=== PATIENT | male | born 1950 | race Caucasian/White ===

== ENCOUNTER 2017-07-09 12:00 | Observation (INO) | payer OTHER, MEDICARE ==
[~2017-07-09] VITALS: Ht 175.3 cm; Wt 92.1 kg
--- NOTE | 2017-07-09 12:38 | ED NEURO DEFICIT/STROKE ---
History of Present Illness General Chief Complaint: General Adult Stated Complaint: L SIDED FACIAL DROOP Source: patient, family Exam Limitations: no limitations Vital Signs & Intake/Output Vital Signs & Intake/Output Vital Signs Date Time Temp Pulse Resp B/P B/P Pulse O2 O2 Flow FiO2 Mean Ox Delivery Rate 07/09 1658 97.4 58 18 162/88 96 07/09 1518 97.7 61 15 162/77 96 Room Air Room Air 07/09 1300 Room Air Room Air 07/09 1208 97.2 69 20 144/85 97 Room Air Allergies Coded Allergies: atorvastatin (From LIPITOR) (Mild, MUSCLE PAIN 07/09/17) Reconcile Medications Alprazolam 0.25 MG TABLET 1 TAB PO QPM PRN ANXIETY (Reported) Amlodipine Besylate/Benazepril (Amlodipine-Benazepril 10-20 MG) 10 MG-20 MG CAPSULE 1 CAP PO DAILY BP (Reported) Ascorbic Acid (Vitamin C) 1,000 MG TABLET 1 TAB PO DAILY SUPPLEMENT (Reported ) Calcium Carbonate/Vitamin D3 (Calcium 500 + D Tablet) (Unknown Strength) TABLET (Unknown Dose) PO DAILY SUPPLEMENT (Reported) Dextran 70/Hypromellose (Artificial Tears) 1 EACH DROPERETTE 2 GTT OPH 4 TIMES /DAY PRN dry eyes . Ezetimibe (Zetia) 10 MG TABLET 1 TAB PO DAILY CHOLESTEROL (Reported) [place]-3 Fatty Acids/Fish Oil (Fish Oil 1,200 MG Softgel) 360 MG-1,200 MG CAPSULE 1 CAP PO TID SUPPLEMENT (Reported) Prednisone 20 MG TABLET 0 PO DAILY BELLS PALSY ON TAKE 07/10 80 MG 07/11-07/12 60 MG 07/13-07/14 40 MG 07/15-07/16 20 MG. STOP Sertraline HCl 100 MG TABLET 1 TAB PO DAILY MENTAL HEALTH (Reported) Simvastatin (Simvastatin*) 20 MG TABLET 1 TAB PO QPM CHOLESTEROL (Reported) Thiamine HCl (B-1) 100 MG TABLET 1 TAB PO DAILY SUPPLEMENT (Reported) Vitamin E Mixed (Vitamin E) (Unknown Strength) TABLET (Unknown Dose) PO DAILY SUPPLEMENT (Reported) ZINC (Unknown Strength) TABLET (Unknown Dose) PO DAILY SUPPLEMENT (Reported) Triage Note: LEFT SIDED FACIAL DROOP X 1 HOUR. FEELS LIKE NOVACAINE IN MOUTH. STATES HE HAS BEEN LIGHTHEADED X 1 MONTH. HAND GRASPS STRONG AND EQUAL. +LEFT SIDED FACIAL DROOP. DENIES WEAKNESS IN LEGS. ABLE TO RAISE EYEBROWS Triage Nurses Notes Reviewed? yes Onset: Abrupt Duration: hour(s): (1) Timing: single episode today Severity: moderate, severe New Weakness: left facial Altered Sensations: left facial Associated Symptoms: PAIN BEHIND RIGHT EYE HPI: This is a 67-year-old male with history of hypertension and dyslipidemia who presents to the ER for chief complaint of pain behind his right ear, numbness around his left lip and feeling funny on the left side of his face which began a few hours ago. He states he had a hard time brushing his teeth and swallowing fluid. No headache. No blurred vision. No recent URI symptoms. No numbness and tingling of his arms or legs. When he started to feel worse he asked his to bring him to the ER for evaluation. No history of similar symptoms in the past before. No trauma. Past History Travel History Traveled to [place] past 21 day No Medical History Any Pertinent Medical History? see below for history Cardiovascular: hypertension, hyperlipidemia Psychiatric: depression Cancer(s): prostate cancer Surgical History Surgical History: HIP REPLACEMENT DISC SURGERY Psychosocial History What is your primary language Guamanian Tobacco Use: Never used ETOH Use: occasional use Illicit Drug Use: denies illicit drug use Family History Hx Contributory? No Review of Systems Review of Systems Constitutional: Denies: chills, fever. EENTM: Reports: no symptoms. Respiratory: Denies: cough, short of breath, sputum production. Cardiovascular: Denies: chest pain, palpitations, peripheral edema. GI: Denies: abdominal pain. Genitourinary: Reports: no symptoms. Musculoskeletal: Denies: back pain, joint swelling, muscle pain, muscle stiffness. Skin: Reports: no symptoms. Neurological/Psychological: Reports: anxiety, numbness, tingling. Denies: headache, weakness. Hematologic/Endocrine: Denies: bruising, bleeding. Immunologic/Allergic: Reports: no symptoms. All Other Systems: Reviewed and Negative Physical Exam Physical Exam General Appearance: well developed/nourished, alert, awake, anxious, mild distress Head: atraumatic, normal appearance Eyes: Bilateral: normal appearance, PERRL, abnormal EOM. Ears, Nose, Throat: normal ENT inspection, moist mucous membrane, hearing grossly normal Neck: normal inspection, supple, full range of motion Respiratory: normal breath sounds, chest non-tender, no respiratory distress Cardiovascular: regular rate/rhythm, normal peripheral pulses Gastrointestinal: soft, non-tender Back: normal inspection, normal range of motion Extremities: normal range of motion Psychiatric: awake, alert, oriented x 3 Cranial Nerves: normal hearing, abnormal speech, facial asymmetry, facial droop Coordination/Gait: normal finger to nose, normal gait Motor/Sensory: sensory deficit (LEFT LOWER FACE) Core Measures CVA/TIA Diagnosis: Yes NIH Stroke Scale NIH Stroke Scale Response Value Level of Consciousness alert 0 LOC Questions answers both correctly 0 LOC Commands obeys both correctly 0 Best Gaze normal 0 Visual Ribeiro no visual loss 0 Facial Paresis partial 2 Motor Arm - Left no drift 0 Motor Arm - Right no drift 0 Motor Leg - Left no drift 0 Motor Leg - Right no drift 0 Limb Ataxia no ataxia 0 Sensory normal 0 Best Language no aphasia 0 Dysarthria normal articulation 0 Extinction and Inattention no neglect 0 Total 2 Date Last Known Well: 07/09/17 Time Last Known Well: 1130 Swallow Evaluation Pass Swallow eval date 07/09/17 Sepsis Present: No Sepsis Focused Exam Completed? No Progress Differential Diagnosis: Jackson's Palsy, intracranial Hem., intracranial mass/tumor , seizure disorder, stroke, subarachnoid Hem. Plan of Care: Orders Procedure Date/time Status SPEECH EVALUATION 07/10 0700 Active PT Evaluate & Treat 07/10 0700 Active LIPID PANEL 07/10 0600 Active Heart Healthy Diet 07/09 D Active LYME TITRE 07/09 1839 Active Add-on Test (ER Only) 07/09 1832 Active TROPONIN LEVEL 07/09 1800 Active EKG 07/09 1800 Active Pathway - chart 07/09 1710 Active Pathway - chart 07/09 1635 Active Patient Data 07/09 1435 Active Patient Data 07/[address] in observation 07/09 1427 Active ED Holding Orders 07/09 1427 Active Vital Signs 07/09 1427 Active Code Status 07/09 1427 Active [id number] DOPPLER 07/09 1346 Active EKG 07/09 1307 Active LYME TITRE 07/09 1246 Active TROPONIN LEVEL 07/09 1239 Complete PARTIAL THROMBOPLASTIN TIME 07/09 1239 Complete PROTHROMBIN TIME 07/09 1239 Complete COMPREHENSIVE METABOLIC PANEL 07/09 1239 Complete CBC WITHOUT DIFFERENTIAL 07/09 1239 Complete EKG 07/09 1239 Active Intake & Output 07/09 1224 Active FingerStick- Glucose 07/09 1218 Active NIH Stroke Scale 07/09 1215 Active House Staff 07/09 UNK Active Nursing Misc 07/09 UNK Active Activity/Ambulation 07/09 UNK Active Current Medications Sig/Angel Start time Last Medication Dose Stop Time Status Admin Lisinopril 10 MG DAILY 07/10 1000 AC (Prinivil) Sertraline HCl 100 MG DAILY 07/10 1000 AC (Zoloft) Zinc Sulfate 220 MG DAILY 07/10 1000 AC (Zinc Sulfate) Fish Oil 2,100 MG BID 07/09 220 AC ([place]-3) Prednisone 80 MG DAILY 07/09 1845 UNVr 07/11 1001 Artificial Tears 2 GTT 4 TIMES/DAY PRN 07/09 1830 UNVr (Tears Natural) Acetaminophen 650 MG Q6P PRN 07/09 1715 AC (Tylenol) Atorvastatin Calcium 10 MG 1700 07/09 171 AC (Lipitor) Morphine Sulfate 2 MG Q4P PRN 07/09 171 AC (MORPHINE SULFATE) Enoxaparin Sodium 40 MG DAILY 07/09 1634 AC 07/09 (Lovenox) 1730 Laboratory Tests 07/09/17 1806: Troponin I Pending 07/09/17 1246: Anion Gap 12, Estimated GFR > 60, BUN/Creatinine Ratio 27.5 H, Glucose 97, Calcium 9.7, Total Bilirubin 0.6, AST 20, ALT 28, Alkaline Phosphatase 32, Troponin I < 0.01, Total Protein 7.0, Albumin 4.5, Globulin 2.5, Albumin/ Globulin Ratio 1.8, PT 10.9, INR 1.00, APTT 31, CBC w Diff NO MAN DIFF REQ, RBC 4.69 L, MCV 88.5, MCH 29.8, MCHC 33.7, RDW 13.8, MPV 8.9, Gran % 58.8, Lymphocytes % 31.6, Monocytes % 6.1, Eosinophils % 2.1, Basophils % 1.4, Absolute Granulocytes 3.2, Absolute Lymphocytes 1.7, Absolute Monocytes 0.3, Absolute Eosinophils 0.1, Absolute Basophils 0.1, Lyme Disease Antibody Pending Atypical presentation of Jackson's palsy. Patient has left-sided facial weakness however he has left-sided facial sparing with right-sided eye pain. CT negative. The case discussed with Dr. simpson who advises admission for MRI, carotid Dopplers and official consultation by HIM. Diagnostic Imaging: Viewed by Me: CT Scan, MRI, Ultrasound. Discussed w/RAD: CT Scan, MRI, Ultrasound. Radiology Impression: PATIENT: ERMA GAINES PRESENT AGE: 67 PATIENT ACCOUNT NO: [id number] : 51 LOCATION: [facility] ORDERING PHYSICIAN: Poly Flores MD SERVICE DATE: 07/09/17 EXAM TYPE: CAT - CT HEAD WO IV CONTRAST EXAMINATION: CT HEAD WITHOUT CONTRAST CLINICAL INFORMATION: Facial droop. COMPARISON: No relevant prior imaging. TECHNIQUE: Contiguous axial imaging was performed from the skull base to vertex without intravenous administration of contrast. DLP: 630.65 mGy-cm FINDINGS: There is no acute intracranial hemorrhage or abnormal extra-axial collection. No intracranial mass effect or midline shift. Lateral and third ventricles are proportionate to the subarachnoid spaces. No hydrocephalus. Scattered ill- defined foci of hypoattenuation are visualized within the periventricular white matter that most likely represent a chronic manifestation of small vessel ischemia. Grossly no evidence of acute territorial infarct. The calvarium and skull base are intact. Mastoid air cells and middle ear cavities are well- aerated. Visualized paranasal sinuses are well-aerated. IMPRESSION: There are scattered chronic small vessel ischemic changes within the periventricular white matter. No evidence of acute territorial infarct or hemorrhage. DICTATED BY: Erma Wood MD DATE/TIME DICTATED:07/09/171299 STAMP ANALYST: TABBY DATE/TIME TRANSCRIBED:07/09/171299 CONFIDENTIAL, DO NOT COPY WITHOUT APPROPRIATE AUTHORIZATION. <Electronically signed in Other Vendor System> SIGNED BY: Erma Wood MD 07/09/17 1307, CAROTID U/S - VERBAL REPORT 6:[address] TURCIOS, PATIENT: ERMA GAINES PRESENT AGE: 67 PATIENT ACCOUNT NO: [id number] : 51 LOCATION: [facility] ORDERING PHYSICIAN: Poly Flores MD SERVICE DATE: 07/09/171241 EXAM TYPE: MRI - MRI-HEAD W & W/O PRESTON EXAMINATION: MR BRAIN WITHOUT AND WITH CONTRAST CLINICAL INFORMATION: Left-sided facial droop/numbness. Assess for CVA. COMPARISON: CT scan of the head earlier 07/09/2017. TECHNIQUE: MRI of the brain was obtained using routine sequences before and after the intravenous administration of 9 mL of Gadavist. FINDINGS: The 7th and 8th cranial nerve complexes are symmetric in course, caliber, and enhancement characteristics. The major inner ear structures including the cochlea, semicircular canals, and vestibule are symmetric in morphology and demonstrate normal CSF signal. No enhancing intracanalicular or cerebellopontine angle mass lesions are visualized. No focal reduced diffusion is seen to suggest acute or subacute cerebral ischemia. There are scattered areas of FLAIR hyperintensity in the periventricular and subcortical white matter, consistent with chronic microvascular ischemic changes. There is an arachnoid cyst in the anterior left middle cranial fossa, which measures 2.4 x 1.4 cm. There is minimal mass effect on the adjacent anterior aspect of the temporal lobe, and there is no abnormal signal from the adjacent brain parenchyma. No intracranial mass, intracerebral edema, intra-axial blood products, or midline shift are visualized. No pathologic enhancement is appreciated on postcontrast sequences. The ventricles and sulci are slightly commensurately prominent consistent with mild diffuse volume loss. Normal arterial and venous vascular flow voids are present. The basilar artery is relatively ectatic and tortuous. The mastoid air cells are well-aerated. There is a retention cyst in the inferior left maxillary sinus. IMPRESSION: 1. There are no acute bleeds or infarcts. There are no masses or areas of abnormal enhancement. The CP angles and internal auditory canals appear normal. 2. There is diffuse volume loss and there are chronic microvascular ischemic changes. 3. There is a left middle cranial fossa arachnoid cyst anteriorly. DICTATED BY: Abraham Wright MD DATE/TIME DICTATED:07/09/171530 STAMP ANALYST:TABBY DATE/TIME TRANSCRIBED:07/09/171530 CONFIDENTIAL, DO NOT COPY WITHOUT APPROPRIATE AUTHORIZATION. <Electronically signed in Other Vendor System> SIGNED BY: Abraham Wright MD 07/09/17 1541 Initial ED EKG: NSR Rhythm Strip: normal sinus rhythm Departure Departure Time of Disposition: 1426 Disposition: STILL A PATIENT Condition: Stable Clinical Impression Primary Impression: CVA (cerebral vascular accident) Referrals: Inder GARRIDO,Cassius Michel (PCP/Family) Departure Forms: Customer Survey General Discharge Information Prescriptions: Current Visit Scripts Dextran 70/Hypromellose (Artificial Tears) 2 GTT OPH 4 TIMES/DAY PRN dry eyes #1 BOT . Prednisone 0 PO DAILY #16 TAB ON TAKE 07/10 80 MG 07/11-07/12 60 MG 07/13-07/14 40 MG 07/15-07/16 20 MG. STOP Observation Note Spoke With: Mehid GARRIDO,Cami Physician Advisor Notified: LLOYD GARRIDO,ASPEN [facility] Patient In: Non-ED OBS Care Area Rationale for Observation: My rational for observation is as follows [TELE MONITOR, MRI BRAIN, CAROTID ULTRASOUD, NEURO CONSULTATION DR AC].
[2017-07-09 12:57] LABS: ABSOLUTE BASOPHIL COUNT 0.1 /CUMM (0.0-0.2); ABSOLUTE EOSINOPHIL COUNT 0.1 /CUMM (0.0-0.7); ABSOLUTE GRANULOCYTE CT 3.2 /CUMM (1.4-6.5); ABSOLUTE LYMPH COUNT 1.7 /CUMM (1.2-3.4); ABSOLUTE MONOCYTE COUNT 0.3 /CUMM (0.10-0.60); BASOPHIL % 1.4 % (0.0-2.0); EOSINOPHIL % 2.1 % (0-5); GRANULOCYTE % 58.8 % (42.2-75.2); HEMATOCRIT 41.5 % (42-52); MEAN CORPUSCULAR HGB 29.8 PG (27.0-31.0); MEAN CORPUSCULAR HGB CONC 33.7 G/DL (33.0-37.0); MEAN CORPUSCULAR VOLUME 88.5 FL (80.0-94.0); MEAN PLATELET VOLUME 8.9 FL (7.4-10.4); PLATELET COUNT 297 /CUMM (130-400); RBC DISTRIBUTION WIDTH 13.8 % (11.5-14.5); RED BLOOD CELL CT 4.69 /CUMM (4.70-6.10); WHITE BLOOD CELL COUNT 5.5 /CUMM (4.8-10.8)
[2017-07-09 13:06] LABS: PT 10.9 SEC (9.4-12.5); PTT 31 SEC (25-37)
--- NOTE | 2017-07-09 13:07 | CT SCAN REPORT ---
EXAMINATION: CT HEAD WITHOUT CONTRAST CLINICAL INFORMATION: Facial droop. COMPARISON: No relevant prior imaging. TECHNIQUE: Contiguous axial imaging was performed from the skull base to vertex without intravenous administration of contrast. DLP: 630.65 mGy-cm FINDINGS: There is no acute intracranial hemorrhage or abnormal extra-axial collection. No intracranial mass effect or midline shift. Lateral and third ventricles are proportionate to the subarachnoid spaces. No hydrocephalus. Scattered ill-defined foci of hypoattenuation are visualized within the periventricular white matter that most likely represent a chronic manifestation of small vessel ischemia. Grossly no evidence of acute territorial infarct. The calvarium and skull base are intact. Mastoid air cells and middle ear cavities are well-aerated. Visualized paranasal sinuses are well-aerated. IMPRESSION: There are scattered chronic small vessel ischemic changes within the periventricular white matter. No evidence of acute territorial infarct or hemorrhage.
--- NOTE | 2017-07-09 15:03 | History & Physical ---
Rosemary GARRIDO,[facility] 07/09/17 1502: General Information and HPI MD Statement: I have seen and personally examined ERMA GAINES and documented this H&P. The patient is a 67 year old M who presented with a patient stated chief complaint of [Left sided facial droop]. Source of Information: patient Exam Limitations: no limitations History of Present Illness: Mr. Gaines is a 67-year-old gentleman with past medical history significant for hypertension, hyperlipidemia, depression and prostate cancer presents with left- sided facial droop started around 11:30 in the morning. According to the patient, he was in his usual state of health until this morning , she'll hold no for about an hour(10 AM to 11 AM) when around 11:15 was talking to his daughter over the phone he felt a left-sided facial droop. Later when he went to brush his teeth he noticed that he could spit from his right side only, and even now he is struggling to talk because of the facial droop(no slurring of speech). Also Complains of difficulty opening his left eye . He has pain behind his right ear and creaky sensation in his left eye since yesterday, has noticed decrease in his vision since [place] but denies any acute vision changes. Patient also endorses problems with his balance and lightheadedness for the past 1 month, states the lightheadedness status for a couple of seconds and then goes away on its own but denies any falls or loss of consciousness. Also denies any headaches, confusion, chest pain, palpitations, numbness/ tingling, weakness in any part of the body, recent travel, rash or tick bites. Allergies/Medications Allergies: Coded Allergies: No Known Allergies (07/09/17) Home Med list Alprazolam 0.25 MG TABLET 1 TAB PO QPM PRN ANXIETY (Reported) Amlodipine Besylate/Benazepril (Amlodipine-Benazepril 10-20 MG) 10 MG-20 MG CAPSULE 1 CAP PO DAILY BP (Reported) Ascorbic Acid (Vitamin C) 1,000 MG TABLET 1 TAB PO DAILY SUPPLEMENT (Reported ) Calcium Carbonate/Vitamin D3 (Calcium 500 + D Tablet) (Unknown Strength) TABLET (Unknown Dose) PO DAILY SUPPLEMENT (Reported) Ezetimibe (Zetia) 10 MG TABLET 1 TAB PO DAILY CHOLESTEROL (Reported) Holden-3 Fatty Acids/Fish Oil (Fish Oil 1,200 MG Softgel) 360 MG-1,200 MG CAPSULE 1 CAP PO TID SUPPLEMENT (Reported) Sertraline HCl 100 MG TABLET 1 TAB PO DAILY MENTAL HEALTH (Reported) Simvastatin (Simvastatin*) 20 MG TABLET 1 TAB PO QPM CHOLESTEROL (Reported) Thiamine HCl (B-1) 100 MG TABLET 1 TAB PO DAILY SUPPLEMENT (Reported) Vitamin E Mixed (Vitamin E) (Unknown Strength) TABLET (Unknown Dose) PO DAILY SUPPLEMENT (Reported) ZINC (Unknown Strength) TABLET (Unknown Dose) PO DAILY SUPPLEMENT (Reported) Observation Initial Note - I have personally examined ERMA GAINES on 07/09/17 at 1637. The disposition of ERMA GAINES is uncertain at this time and before a determination can be made, he requires a period of observation for the following reasons [left sided facial droop] Past History Travel History Traveled to [place] past 21 day No Medical History Cardiovascular: hypertension, hyperlipidemia Psychiatric: depression Cancer(s): prostate cancer Surgical History Surgical History: HIP REPLACEMENT DISC SURGERY Past Family/Social History Family History Relations & Conditions if any BROTHER FH: diabetes mellitus FHx: hypercholesterolemia FATHER FHx: hypercholesterolemia Psychosocial History Smoking Status: Never Smoked ETOH Use: occasional use, 4-5 beers a day/4 days a week Illicit Drug Use: denies illicit drug use Functional Ability ADLs Independent: dressing, eating, toileting, bathing. Ambulation: independent IADLs Independent: shopping, housework, finances, food prep, telephone, transportation , medication admin. Review of Systems Review of Systems Constitutional: Reports: no symptoms. EENTM: Reports: see HPI. Cardiovascular: Reports: no symptoms. Respiratory: Reports: no symptoms. GI: Reports: no symptoms. Genitourinary: Reports: no symptoms. Musculoskeletal: Reports: no symptoms. Skin: Reports: no symptoms. Neurological/Psychological: Reports: other. Hematologic/Endocrine: Reports: no symptoms. Immunologic/Allergic: Reports: no symptoms. All Other Systems: Reviewed and Negative Exam & Diagnostic Data Last 24 Hrs of Vital Signs/I&O Vital Signs Date Time Temp Pulse Resp B/P B/P Pulse O2 O2 Flow FiO2 Mean Ox Delivery Rate 07/09 1658 97.4 58 18 162/88 96 07/09 1518 97.7 61 15 162/77 96 Room Air Room Air 03/08 1300 Room Air Room Air 07/09 1208 97.2 69 20 144/85 97 Room Air Intake & Output 07/09 1600 07/09 0800 07/09 0000 Intake Total 0 Output Total Balance 0 Intake, Oral 0 Patient 200 lb Weight Weight Reported by Patient Measurement Method Physical Exam General Appearance Alert, Oriented X3, Cooperative Skin No Rashes, No Breakdown HEENT Atraumatic, PERRLA, EOMI, Mucous Membr. moist/pink, Lid lag on the right Neck Supple, No JVD Cardiovascular Regular Rate, Normal S1, Normal S2 Lungs Clear to Auscultation, Normal Air Movement Abdomen Normal Bowel Sounds, Soft, No Tenderness Neurological Strength at 5/5 X4 Ext, Normal Tone, Sensation Intact, Reflexes 2+, Facial droop on the left, unable to puff out cheek on the left, minimal wrinkling of forehead on the right compared to left Extremities No Clubbing, No Cyanosis, No Edema, Normal Pulses Last 24 Hrs of Labs/Phillip: Laboratory Tests 07/09/17 1806: Troponin I < 0.01 07/09/17 1246: Anion Gap 12, Estimated GFR > 60, BUN/Creatinine Ratio 27.5 H, Glucose 97, Calcium 9.7, Total Bilirubin 0.6, AST 20, ALT 28, Alkaline Phosphatase 32, Troponin I < 0.01, Total Protein 7.0, Albumin 4.5, Globulin 2.5, Albumin/ Globulin Ratio 1.8, PT 10.9, INR 1.00, APTT 31, CBC w Diff NO MAN DIFF REQ, RBC 4.69 L, MCV 88.5, MCH 29.8, MCHC 33.7, RDW 13.8, MPV 8.9, Gran % 58.8, Lymphocytes % 31.6, Monocytes % 6.1, Eosinophils % 2.1, Basophils % 1.4, Absolute Granulocytes 3.2, Absolute Lymphocytes 1.7, Absolute Monocytes 0.3, Absolute Eosinophils 0.1, Absolute Basophils 0.1, Lyme Disease Antibody Pending Diagnostic Data EKG Results Normal Sinus Rhythm Heart rate 63 Qtc [address] HEAD WO IV CONTRAST IMPRESSION: There are scattered chronic small vessel ischemic changes within the periventricular white matter. No evidence of acute territorial infarct or hemorrhage. MR BRAIN WITHOUT AND WITH CONTRAST IMPRESSION: 1. There are no acute bleeds or infarcts. There are no masses or areas of abnormal enhancement. The CP angles and internal auditory canals appear normal. 2. There is diffuse volume loss and there are chronic microvascular ischemic changes. 3. There is a left middle cranial fossa arachnoid cyst anteriorly. Assessment/Plan Assessment: Mr. Gaines is a 67-year-old gentleman with past medical history significant for hypertension, hyperlipidemia, depression and prostate cancer presents with left- sided facial droop started around 11:30 in the morning. Problem List # [place] Palsy # Hx of HTN and HLD - We will observe the patient on telemetry floor for 24 hours. - CT and MRI Head negative for any acute pathology. - Awaiting Carotid Ultrasound results. - Will check Lyme titres. - Patient was seen by Dr. Mckay, started on Prednisone 80mg daily x 3 days and taper over next 7-10 days. - Eye drops as needed - Continue rest of the medications for depression, HTN and HLD. DVT Prophylaxis; ALPS amd S/C Lovenox Patient is Full Code. As Ranked By This Provider Problem List: 1. Jackson's palsy Core Measures/Misc (01/18) Acute Coronary Syndrome ACS Diagnosis: No Congestive Heart Failure Congestive Heart Failure Diagnosis No Cerebrovascular Accident CVA/TIA Diagnosis: No VTE (View Protocol) VTE Risk Factors Age>40 No Mechanical VTE Prophylaxis d/t N/A MechProphylax Ordered No VTE Pharm Prophylaxis d/t NA PharmProphylax ordered Sepsis (View protocol) Sepsis Present: No [facility] 07/09/17 1710: Resident Review Statement Resident Statement: examined this patient, discussed with management intern, agreed with management intern Other Findings: Mr. Gaines is a 67-year-old man with a past medical history significant for hypertension, hyperlipidemia, depression and prostate cancer presents who presented with left-sided deviation of his mouth and a right facial droop that started suddenly around 11:30am this morning. The right facial droop started shortly after he shovelled snow for an hour around 11 am, while he was talking on the phone. He noted his mought felt "Like it had been given novocaine" and he was talking with a slightly garbled speech due to his right lip sagging. Of note, the night before, he noted a gritty sensation in his right eye and right ear fullness, but with normal hearing. He has also and been having some gait disturbances since April, as well as intermittent dizziness since last month. He also had slight headache. He denied recent travel, bug or tick bite or exposure. He had his flu shot 3 weeks ago. he denied chest pain or palpitations. On presentation in the physical exam is notable for mouth deviation to the left and less prominent nasolabial fold on the right. Forehead movement/wrinkling was weak on the right as well as eye closing. No tongue deviation. Normal power in neck, shoulders, arms and legs globally. Normal coordination and normal sensation in face, head and limbs. ENT exam showed normal ears and normal TM bilaterally with no rash. Lungswere clear to auscultation and cardiovascular exam showed normal carotids with no bruit, RRR, normal S1 and S2 with no murmurs. Abdomen exam was unremarkable. Lab results were unremarkable. CT head showed no evidence of acute territorial infarct or hemorrhage. MRI head also showed no acute lesion or stroke. Problem list 1. Right Jackson's palsy 2. Hypertension 3. History of depression Plan * Observe on telemetry * Neurology consultation * Send lyme titer * Consider high dose prednisone daily and valcyclovir therapy * Continue home medication for hypertension with losartan (equivalent of home medication) * Continue sertraline for depression * DVT prophylaxis with SC lovenox * Code status is full code Sherron GARRIDO,Jhonny 07/09/171941: Attending MD Review Statement Attending Statement Attending MD Statement: examined this patient, discuss w/resident/PA/STRUCTURAL STEEL SHOP SUPERVISOR, agreed w/resident/PA/STRUCTURAL STEEL SHOP SUPERVISOR, discussed with family, reviewed EMR data (avail), discussed with nursing, amended to note Attending Assessment/Plan: Patient is a 67-year-old male with history of prostate cancer, depression and hypertension who presented to the emergency room with complaints of facial drooping and slurred speech. On his patient's symptoms started suddenly this morning. Pulmonary tingling sensation over the left side of the face. He reports brushing his teeth are not seen ambulating to speak [place] only from the right side of his mouth. He states he speech was slurred and this was supported by his . She noted some facial asymmetry but she is not able to clearly verbalize what she noted was wrong. Emergency room patient was noted with facial asymmetry. Due to the complaints concern for stroke leading to a head CT scan which showed no acute pathology. An MRI was done which also showed no evidence of an acute stroke. Patient was referred to the medical service for further evaluation and management. On evaluation patient was found alert and oriented 3. Not in any acute distress. On examination he had no motor deficits in his upper and lower extremities. Sensation was intact globally. He was also observed walking with no gait deficit. On examination of the face, is a mild droop on the right. Pupils were equal and reactive. Extraocular muscles movement was intact. Range of motion on the forehead was slightly decreased on the right. Unable to open the right eyelid when patient was asked to close them. He however weakness when puffing his cheeks on the left. Tongue was midline. Shoulder shrug was intact. Problems: 1. Jackson's palsy 2. Hypertension Recommendations: -Patient has no evidence of acute stroke. -Exam findings are consistent with Jackson's palsy. -Neurology evaluation appreciated. Begin patient on steroid therapy. -We'll place patient on observation level of care. We'll place on neuro watch every 4 hours overnight. If no further neurologic deficits overnight patient may be discharged home in the morning on steroid regimen.
--- NOTE | 2017-07-09 15:41 | MRI REPORT ---
EXAMINATION: MR BRAIN WITHOUT AND WITH CONTRAST CLINICAL INFORMATION: Left-sided facial droop/numbness. Assess for CVA. COMPARISON: CT scan of the head earlier 07/09/2017. TECHNIQUE: MRI of the brain was obtained using routine sequences before and after the intravenous administration of 9 mL of Gadavist. FINDINGS: The 7th and 8th cranial nerve complexes are symmetric in course, caliber, and enhancement characteristics. The major inner ear structures including the cochlea, semicircular canals, and vestibule are symmetric in morphology and demonstrate normal CSF signal. No enhancing intracanalicular or cerebellopontine angle mass lesions are visualized. No focal reduced diffusion is seen to suggest acute or subacute cerebral ischemia. There are scattered areas of FLAIR hyperintensity in the periventricular and subcortical white matter, consistent with chronic microvascular ischemic changes. There is an arachnoid cyst in the anterior left middle cranial fossa, which measures 2.4 x 1.4 cm. There is minimal mass effect on the adjacent anterior aspect of the temporal lobe, and there is no abnormal signal from the adjacent brain parenchyma. No intracranial mass, intracerebral edema, intra-axial blood products, or midline shift are visualized. No pathologic enhancement is appreciated on postcontrast sequences. The ventricles and sulci are slightly commensurately prominent consistent with mild diffuse volume loss. Normal arterial and venous vascular flow voids are present. The basilar artery is relatively ectatic and tortuous. The mastoid air cells are well-aerated. There is a retention cyst in the inferior left maxillary sinus. IMPRESSION: 1. There are no acute bleeds or infarcts. There are no masses or areas of abnormal enhancement. The CP angles and internal auditory canals appear normal. 2. There is diffuse volume loss and there are chronic microvascular ischemic changes. 3. There is a left middle cranial fossa arachnoid cyst anteriorly.
[2017-07-09] MEDS ORDERED: SERTRALINE HCL100 MG PO (16:13)
[2017-07-09] MEDS ORDERED: AMLODIPINE-BEN1 EAC4 PO (16:14)
[2017-07-09] MEDS ORDERED: ALPRAZOLAM0.25 M1 PO (16:14)
[2017-07-09] MEDS ORDERED: SIMVASTATIN20 M2 PO (16:14)
[2017-07-09] MEDS ORDERED: ZETIA10 M1 PO (16:14)
[2017-07-09] MEDS ORDERED: B-1100 MG PO (16:15)
[2017-07-09] MEDS ORDERED: VITAMIN C500 M6 PO (16:16)
[2017-07-09] MEDS ORDERED: ZINC50 M2 PO (16:16)
[2017-07-09] MEDS ORDERED: FISH OIL 1,0001 EAC2 PO (16:17)
[2017-07-09] MEDS ORDERED: VITAMIN E100 UNI2 PO (16:17)
[2017-07-09] MEDS ORDERED: CALCIUM 500 +1 EAC5 PO (16:18)
[2017-07-09] MEDS ORDERED: FISH OIL 1,2001 EAC4 PO (16:30)
[2017-07-09] MEDS ORDERED: VITAMIN C1000 M4 PO (16:31)
--- NOTE | 2017-07-09 18:20 | Cons- Neurology ---
General Information and HPI Consulting Request Date of Consult: 07/09/17 Requested By: Jhonny Siu MD Reason for Consult: Right facial droop Source of Information: patient Exam Limitations: no limitations History of Present Illness: 67-year-old man noted some weakness of the face late this morning when he came in from shoveling snow and found himself drooling out the right side. The left side of his face reportedly felt funny. On presentation to the ER lower facial weakness was noted and he was evaluated urgently for stroke with CT scan which was negative and then MRI which has come back negative as well. While waiting in the ER weakness has progressed to the upper and lower face with reduced power of eye closure. There is no associated weakness in the arms or legs. No actual sensory complaints. On further review he started having some discomfort behind the right ear yesterday and noted some tearing of the right eye last night. This discomfort has persisted and is moderately severe at this time. There is no change in hearing and no change in taste perception. No recent febrile or viral illnesses, did have a flu shot about 3 weeks ago, no prior neurologic events Allergies/Medications Allergies: Coded Allergies: No Known Allergies (07/09/17) Home Med List: Alprazolam 0.25 MG TABLET 1 TAB PO QPM PRN ANXIETY (Reported) Amlodipine Besylate/Benazepril (Amlodipine-Benazepril 10-20 MG) 10 MG-20 MG CAPSULE 1 CAP PO DAILY BP (Reported) Ascorbic Acid (Vitamin C) 1,000 MG TABLET 1 TAB PO DAILY SUPPLEMENT (Reported ) Calcium Carbonate/Vitamin D3 (Calcium 500 + D Tablet) (Unknown Strength) TABLET (Unknown Dose) PO DAILY SUPPLEMENT (Reported) Ezetimibe (Zetia) 10 MG TABLET 1 TAB PO DAILY CHOLESTEROL (Reported) Mather-3 Fatty Acids/Fish Oil (Fish Oil 1,200 MG Softgel) 360 MG-1,200 MG CAPSULE 1 CAP PO TID SUPPLEMENT (Reported) Sertraline HCl 100 MG TABLET 1 TAB PO DAILY MENTAL HEALTH (Reported) Simvastatin (Simvastatin*) 20 MG TABLET 1 TAB PO QPM CHOLESTEROL (Reported) Thiamine HCl (B-1) 100 MG TABLET 1 TAB PO DAILY SUPPLEMENT (Reported) Vitamin E Mixed (Vitamin E) (Unknown Strength) TABLET (Unknown Dose) PO DAILY SUPPLEMENT (Reported) ZINC (Unknown Strength) TABLET (Unknown Dose) PO DAILY SUPPLEMENT (Reported) Current Medications: Current Medications Sig/Angel Start time Last Medication Dose Route Stop Time Status Admin Acetaminophen 650 MG Q6P PRN 07/09 1715 AC PO Aspirin 0 .STK-MED ONE 07/09 1437 DC PO Aspirin 81 MG ONCE ONE 07/09 1330 DC 07/09 PO 07/09 1331 1450 Atorvastatin Calcium 10 MG 1700 07/09 1715 AC PO Atorvastatin Calcium 80 MG 1700 07/09 1700 DC PO Enoxaparin Sodium 0 .STK-MED ONE 07/09 1727 DC SC Enoxaparin Sodium 40 MG DAILY 07/09 1634 AC 07/09 SC 1730 Fish Oil 2,100 MG BID 07/09 2200 AC PO Lisinopril 10 MG DAILY 07/10 1000 AC PO Morphine Sulfate 2 MG Q4P PRN 07/09 1715 AC IV Sertraline HCl 100 MG DAILY 07/10 1000 AC PO Zinc Sulfate 220 MG DAILY 07/10 1000 AC PO Review of Systems Review of Systems: ROS: A complete medical systems review was obtained. No pertinent complaints were found. Past History Travel History Traveled to [place] past 21 day No Medical History Cardiovascular: hypertension, hyperlipidemia Psychiatric: depression Cancer(s): prostate cancer Surgical History Surgical History: HIP REPLACEMENT DISC SURGERY Psychosocial History ETOH Use: occasional use Illicit Drug Use: denies illicit drug use Exam & Diagnostic Data Vital Signs and I&O Vital Signs Date Time Temp Pulse Resp B/P B/P Pulse O2 O2 Flow FiO2 Mean Ox Delivery Rate 07/09 1658 97.4 58 18 162/88 96 07/09 1518 97.7 61 15 162/77 96 Room Air Room Air 07/09 1300 Room Air Room Air 07/09 1208 97.2 69 20 144/85 97 Room Air Intake & Output 07/09 1600 07/09 0800 07/09 0000 Intake Total 0 Output Total Balance 0 Intake, Oral 0 Patient 200 lb Weight Weight Reported by Patient Measurement Method Physical Exam: On exam the patient appeared generally well and in no distress. No carotid bruits and no cardiac murmur. No peripheral edema Mental status: Alert, attentive, fully oriented, no language errors, recall and general fund of knowledge seem intact Funduscopic unremarkable Visual he full , Eye movements full without nystagmus, pupils midsize equal round and reactive to light. Right upper and lower facial weakness. Able to close the right eye fully without forcing Facial sensation normal bilaterally Hearing intact bilaterally Uvula elevates midline Tongue protrusion is midline Shoulder shrug symmetric Motor power and tone normal in all 4 extremities Sensation intact to primary modes Tendon reflexes normal and symmetric without pathologic signs Coordination no ataxia Gait [testing deferred] Last 48 Hours of Lab Results: Laboratory Tests 07/09 1246 Chemistry Sodium (137 - 145 mmol/L) 140 Potassium (3.5 - 5.1 mmol/L) 4.2 Chloride (98 - 107 mmol/L) 103 Carbon Dioxide (22 - 30 mmol/L) 25 Anion Gap (5 - 16) 12 BUN (9 - 20 mg/dL) 22 H Creatinine (0.7 - 1.2 mg/dL) 0.8 Estimated GFR (>60 ml/min) > 60 BUN/Creatinine Ratio (7 - 25 %) 27.5 H Glucose (65 - 99 mg/dL) 97 Calcium (8.4 - 10.2 mg/dL) 9.7 Total Bilirubin (0.2 - 1.3 mg/dL) 0.6 AST (17 - 59 U/L) 20 ALT (21 - 72 U/L) 28 Alkaline Phosphatase (< 127 U/L) 32 Troponin I (<0.11 ng/ml) < 0.01 Total Protein (6.3 - 8.2 g/dL) 7.0 Albumin (3.5 - 5.0 g/dL) 4.5 Globulin (1.9 - 4.2 gm/dL) 2.5 Albumin/Globulin Ratio (1.1 - 2.2 %) 1.8 Coagulation PT (9.4 - 12.5 SEC) 10.9 INR (0.90 - 1.17) 1.00 APTT (25 - 37 SEC) 31 Hematology CBC w Diff NO MAN DIFF REQ WBC (4.8 - 10.8 /CUMM) 5.5 RBC (4.70 - 6.10 /CUMM) 4.69 L Hgb (14.0 - 18.0 G/DL) 14.0 Hct (42 - 52 %) 41.5 L MCV (80.0 - 94.0 FL) 88.5 MCH (27.0 - 31.0 PG) 29.8 MCHC (33.0 - 37.0 G/DL) 33.7 RDW (11.5 - 14.5 %) 13.8 Plt Count (130 - 400 /CUMM) 297 MPV (7.4 - 10.4 FL) 8.9 Gran % (42.2 - 75.2 %) 58.8 Lymphocytes % (20.5 - 51.1 %) 31.6 Monocytes % (1.7 - 9.3 %) 6.1 Eosinophils % (0 - 5 %) 2.1 Basophils % (0.0 - 2.0 %) 1.4 Absolute Granulocytes (1.4 - 6.5 /CUMM) 3.2 Absolute Lymphocytes (1.2 - 3.4 /CUMM) 1.7 Absolute Monocytes (0.10 - 0.60 /CUMM) 0.3 Absolute Eosinophils (0.0 - 0.7 /CUMM) 0.1 Absolute Basophils (0.0 - 0.2 /CUMM) 0.1 Imaging/Other Studies: Brain MRI: 1. There are no acute bleeds or infarcts. There are no masses or areas of abnormal enhancement. The CP angles and internal auditory canals appear normal. 2. There is diffuse volume loss and there are chronic microvascular ischemic changes. 3. There is a left middle cranial fossa arachnoid cyst anteriorly. Assessment/Plan Assessment: Jackson's palsy on the right No indication clinically or from imaging studies of stroke Jackson's palsy was discussed with the patient and his including the usual prognosis and treatment options Recommendations: Prednisone 80 mg daily for 3 days then taper off over 7-10 days Lyme titer EYE care, artificial tears, if loses eye closure the lid should be taped closed at night or a lubricating ointment provided Follow-up with PCP Consult Acknowledgment - Thank you for your consult request.
[2017-07-09 22:07] VITALS: BP 160/82
[2017-07-09 23:03] VITALS: BP 150/86
[2017-07-10 06:59] VITALS: BP 134/86
--- NOTE | 2017-07-10 07:21 | PN- Housestaff ---
Rosemary GARRIDO,Sandhya 07/10/17 6589: Subjective Follow-up For: Jackson's Palsy Tele-Events Since Last Visit: No Sherron GARRIDO,Jhonny 07/10/17 1146: Attending MD Review Statement Attending Statement Attending MD Statement: examined this patient, discuss w/resident/PA/FREIGHT RATE SPECIALIST, agreed w/resident/PA/FREIGHT RATE SPECIALIST, reviewed EMR data (avail), discussed with nursing, discussed with case mgmt, amended to note Attending Assessment/Plan: Patient seen and examined. Resting comfortably not in any acute distress. No issues this morning. No events on telemetry monitoring. On examination today he has a clear facial droop on the right side more pronounced compared to presentation. He is unable to wrinkle the forehead on the right side. He is unable to close right-sided against resistance. There is loss of nasolabial fold on the right side. Speech is intact. Power is 5/5 all extremities. Gait is stable. Recommendations: -Symptoms are consistent with Jackson's palsy on the right. -Patient will be discharged home on prednisone today. -Patient is to follow-up with the neurology service as an outpatient. -He has been advised to keep the right eye taped at nighttime.
--- NOTE | 2017-07-10 07:39 | ULTRASOUND REPORT ---
EXAMINATION: DUPLEX BILATERAL CAROTID ULTRASOUND CLINICAL INFORMATION: CVA with left facial weakness. COMPARISON: None. TECHNIQUE: Duplex bilateral carotid US was performed using real-time ultrasound and Doppler techniques (integrating B-mode 2D vascular images, Doppler spectral analysis and color flow Doppler imaging). These techniques were utilized to interrogate the extracranial carotid and vertebral arteries bilaterally. The degree of stenosis is based off criteria similar to NASCET. FINDINGS: No plaque is seen at the carotid bifurcations or within the internal carotid arteries. All velocities are within normal limits. ADDITIONAL FINDINGS: The vertebral arteries show antegrade flow. The external carotid arteries show no significant stenosis. IMPRESSION: No evidence of a hemodynamically significant stenosis involving the internal carotid arteries.
[2017-07-10] MEDS ORDERED: PREDNISONE20 M1 PO ×2 (08:20→09:00)
[2017-07-10] MEDS ORDERED: LISINOPRIL10 M1 PO (08:22)
--- NOTE | 2017-07-10 08:25 | Patient Discharge Instructions ---
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 Please follow up with your PCP within a week after discharge. Diet Continue normal diet: Yes Activity Full Activity/No Limits: Yes Acute Coronary Syndrome Inclusion Criteria At DC or during hospital stay patient has or had the following: ACS DIAGNOSIS No Discharge Core Measures Meds if any: Prescribed or Continued at Discharge Meds if any: NOT Prescribed or Continued at Discharge Congestive Heart Failure Inclusion Criteria At DC or during hospital stay patient has or had the following: CHF DIAGNOSIS No Discharge Core Measures Meds if any: Prescribed or Continued at Discharge Meds if any: NOT Prescribed or Continued at Discharge Cerebrovascular accident Inclusion Criteria At DC or during hospital stay patient has or had the following: CVA/TIA Diagnosis No Discharge Core Measures Meds if any: Prescribed or Continued at Discharge Meds if any: NOT Prescribed or Continued at Discharge Venous thromboembolism Inclusion Criteria VTE Diagnosis No VTE Type NONE VTE Confirmed by (Test) NONE Discharge Core Measures - Per Current guidelines, there needs to be overlap - treatment for the first 5 days of Warfarin therapy. - If discharged on Warfarin prior to 5 days of - overlap therapy, the patient will need to be - assessed for post discharge needs including - *Post discharge parental anticoagulation - *Warfarin and/or parental anticoagulation education - *Follow up date to check INR post discharge At least 5 days overlap therapy as Inpatient No Meds if any: Prescribed or Continued at Discharge Note: Overlap Therapy is Warfarin and Anticoagulant Meds if any: NOT Prescribed or Continued at Discharge
[2017-07-10] MEDS ORDERED: ARTIFICIAL TEA1 EACH OPH ×2 (08:43→09:00)
--- NOTE | 2017-07-10 13:18 | PN-Observation ---
Observation Note Observation Note _ I have personally examined ERMA SOLIZ. him disposition is uncertain at this time. Before a determination can be made, he requires continued observation for the following reasons [facial droop]. Assessment/Plan Medical Assessment: Mr. Soliz is a 67-year-old gentleman with past medical history significant for hypertension, hyperlipidemia, depression and prostate cancer presents with left- sided facial droop started around 11:30 on the morning of presentation. CT and MRI Head negative for any acute pathology, Likely Facial Nerve Palsy. Problem List # [place] Palsy # Hx of HTN and HLD Problem List: 1. Jackson's palsy Plan: - Continue Prednisone 80mg daily. - lyme Titre pending. - Tear drops as needed - Continue rest of the home meds Subjective Follow-up For: Left sided facial droop Tele-Events Since Last Visit: Normal sinus rhyrhm No overnight events noted Subjective: Patient has left sided facial droop, but no other acute complaints. Review of Systems Constitutional: Reports: no symptoms. Objective Last 24 Hrs of Vital Signs/I&O Vital Signs Date Time Temp Pulse Resp B/P B/P Pulse O2 O2 Flow FiO2 Mean Ox Delivery Rate 07/10 0659 97.6 58 12 134/86 95 Room Air Intake & Output 07/10 1600 07/10 0800 07/10 0000 Intake Total 120 Output Total Balance 120 Intake, Oral 120 Patient 203 lb Weight Weight Bed scale Measurement Method Physical Exam General Appearance: Alert, Oriented X3, Cooperative Skin: No Rashes, No Breakdown Cardiovascular: Regular Rate, Normal S1, Normal S2 Lungs: Clear to Auscultation Abdomen: Normal Bowel Sounds, Soft, No Tenderness Neurological: Normal Gait, Normal Speech, Strength at 5/5 X4 Ext, Normal Tone, Sensation Intact, Left sided facial droop Extremities: No Clubbing, No Cyanosis, No Edema, Normal Pulses Current Medications: Current Medications Sig/Angel Start time Last Medication Dose Route Stop Time Status Admin Acetaminophen 650 MG Q6P PRN 07/09 1715 DCD PO Artificial Tears 2 GTT 4 TIMES/DAY PRN 07/09 1830 DCD 07/09 OPH 2027 Atorvastatin Calcium 10 MG 1700 07/09 1715 DCD PO Enoxaparin Sodium 40 MG DAILY 07/09 1634 DCD 07/10 SC 0805 Fish Oil 2,100 MG BID 07/09 2200 DCD 07/10 PO 0805 Lisinopril 10 MG DAILY 07/10 1000 DCD PO Morphine Sulfate 2 MG Q4P PRN 07/09 1715 DCD IV Prednisone 80 MG DAILY 07/09 1845 DCD 07/10 PO 07/11 1001 0805 Sertraline HCl 100 MG DAILY 07/10 1000 DCD PO Zinc Sulfate 220 MG DAILY 07/10 1000 DCD PO Last 24 Hrs of Labs/Mics: Laboratory Tests 07/10/17 0610: Triglycerides 37, Cholesterol 148, LDL Cholesterol, Calc 62 L, HDL Cholesterol 79 H, Cholesterol/HDL Ratio 2
== END 2017-07-10 10:15 ==
LOC: ERH 12:00 → ERHI 14:27 → EDBEDREQ 14:55 → ENRESERV 16:43 → ENTRNSPT 21:33 → EDTRNSPTSTS 21:50 → 1NO 21:57 → CMPTRNSPT 22:05 → ENPENDDIS 07-10 08:59 → 1NO 07-10 10:15
PROVIDERS: Emergency Medicine; Internal Medicine
DX: G51.0 Bell's palsy (principal); I10 Essential (primary) hypertension; E78.5 Hyperlipidemia, unspecified; F32.9 Major depressive disorder, single episode, unspecified; Z85.46 Personal history of malignant neoplasm of prostate; Z72.89 Other problems related to lifestyle; Z79.899 Other long term (current) drug therapy; R29.810 Facial weakness
CPT/HCPCS: 6020; 70552; 86618; 36592; 70553; 93005; 93010; 96372; A9579; G0378; J1650; J3490